=== PATIENT | male | born 1950 | race Caucasian/White ===

== ENCOUNTER 2016-07-07 14:49 | Outpatient (CLI) | payer BC, MEDICARE | END 2016-07-07 14:50 | disposition home or self-care (01) | DX: M17.11 Unilateral primary osteoarthritis, right knee (principal) ==

== ENCOUNTER 2016-11-16 15:54 | Outpatient (CLI) | payer BC, MEDICARE ==
--- NOTE | 2016-11-18 14:33 | CT Report ---
NONCONTRAST CHEST CT: 11/16/2016 CLINICAL HISTORY: A 66-year-old male with sarcoidosis. COMPARISON: None. TECHNIQUE: Noncontrast CT exam of the chest was done. In accordance with CT protocol optimization, one or more of the following dose reduction techniques were utilized for this exam: automated exposure control, adjustment of mA and/or KV based on patient size, or use of iterative reconstructive technique. FINDINGS: Mediastinum demonstrates small calcified granulomatous lymph node in the right posterior paratracheal region. There is also a small calcified lymph node immediately anterior to the right side of the distal third of the esophagus. Transvenous right atrial and right ventricular pacemaker wires are noted in place. Normal cardiac size is seen. Minor coronary artery calcification is detected. Lung windows demonstrate scarring in the lung apices especially posteriorly. There is also prominent scarring extending from each suprahilar region into the superior segment of each lower lobe. Prominent area of conglomerate scarring is also noted in the lateral aspect of the superior segment of the left lower lobe. These areas of scarring were present on a prior chest x-ray from 2014. They have a benign configuration. Several small granulomatous calcifications are seen in the right hilum. Upper abdomen shows no significant abnormality. A small hiatal hernia is seen extending into the inferior mediastinum. Bones show some mild anterior spurring. IMPRESSION: EVIDENCE OF OLD GRANULOMATOUS DISEASE WITH SOME SMALL CALCIFIED MEDIASTINAL AND RIGHT HILAR LYMPH NODES. MILD TO MODERATE SCARRING IS DETECTED IN EACH UPPER LOBE WITH MODERATE DEGREE OF SCARRING SEEN IN THE SUPERIOR SEGMENT OF EACH LOWER LOBE WITH FINDINGS MORE PRONOUNCED ON THE LEFT. THESE CHANGES ARE VERY SIMILAR TO THOSE NOTED ON A CHEST X-RAY FROM 07/20/2014. THEY MAY BE RESULT OF OLD GRANULOMATOUS DISEASE. SMALL HIATAL HERNIA. NORMAL CARDIAC SIZE WITH TRANSVENOUS RIGHT ATRIAL AND RIGHT VENTRICULAR PACEMAKER WIRES NOTED IN PLACE. JOB #: [id number] EXT JOB #: [id number] ANSHUL
== END 2016-11-16 15:55 | disposition home or self-care (01) ==
LOC: DI 15:54
PROVIDERS: ATTEND Internal Medicine Critical Care Medicine
DX: D86.9 Sarcoidosis, unspecified (principal); R91.8 Other nonspecific abnormal finding of lung field; K44.9 Diaphragmatic hernia without obstruction or gangrene; Z95.0 Presence of cardiac pacemaker
CPT/HCPCS: 71250

== ENCOUNTER 2016-11-17 07:41 | Outpatient (CLI) | payer BC, MEDICARE ==
[2016-11-17 08:44] LABS: ALBUMIN/GLOBULIN RATIO 1.6 (1.0-2.2); BILIRUBIN,TOTAL 0.9 mg/dL (0.2-1.0); CALCIUM 8.9 mg/dL (8.5-10.3); CREATININE 1.2 mg/dL (0.6-1.2); POTASSIUM 4.3 mmol/L (3.5-5.0); TOTAL PROTEIN 7.2 g/dL (6.7-8.2)
[2016-11-19 16:31] LABS: TEST RESULT REPORT (())
[2016-11-20 12:55] LABS: TEST RESULT REPORT (())
== END 2016-11-17 07:42 | disposition home or self-care (01) ==
LOC: LAB 07:41
PROVIDERS: ATTEND Internal Medicine Cardiovascular Disease
DX: R07.89 Other chest pain (principal); E78.00 Pure hypercholesterolemia, unspecified; I47.1 Supraventricular tachycardia
CPT/HCPCS: 80053; 80061; 81599; 82465; 82550; 83704; 83718; 84478; 86141

== ENCOUNTER 2017-09-06 08:00 | Outpatient (CLI) | payer MEDICARE, OTHER ==
[2017-09-06 18:45] LABS: BASOPHILS % (AUTO) 0.5 %; EOSINOPHILS # (AUTO) 0.1 10^3/uL (0.0-0.7); EOSINOPHILS % (AUTO) 2.3 %; HGB - HEMOGLOBIN 15.3 g/dL (14.0-18.0); LYMPHOCYTES # (AUTO) 1.7 10^3/uL (1.5-3.5); LYMPHOCYTES % (AUTO) 29.3 %; MEAN CORPUSCULAR HEMOGLOBIN 30.9 pg (27.0-31.0); MEAN CORPUSCULAR HGB CONC 33.3 g/dL (32.0-36.0); MEAN CORPUSCULAR VOLUME 92.7 fL (80.0-94.0); MEAN PLATELET VOLUME 8.5 fL (7.4-11.4); MONOCYTES # (AUTO) 0.6 10^3/uL (0.0-1.0); MONOCYTES % (AUTO) 10.6 %; NEUTROPHILS # (AUTO) 3.3 10^3/uL (1.5-6.6); NEUTROPHILS % (AUTO) 57.3 %; PLT - PLATELET COUNT 228 10^3/uL (130-450); RED BLOOD COUNT 4.96 10^6/uL (4.70-6.10); RED CELL DISTRIBUTION WIDTH 13.4 % (12.0-15.0); WHITE BLOOD COUNT 5.8 x10^3/uL (4.8-10.8)
[2017-09-06 19:24] LABS: ALBUMIN/GLOBULIN RATIO 1.3 (1.0-2.2); BILIRUBIN,TOTAL 0.8 mg/dL (0.2-1.0); CREATININE 1.2 mg/dL (0.6-1.2)
== END 2017-09-06 08:01 | disposition home or self-care (01) ==
LOC: LAB.WCP 08:00
PROVIDERS: ATTEND Family Medicine
DX: R41.3 Other amnesia (principal); Z12.5 Encounter for screening for malignant neoplasm of prostate
CPT/HCPCS: 36415; 80053; 85025; G0103; 84153

== ENCOUNTER 2017-10-14 09:26 | Outpatient (CLI) | payer MEDICARE, OTHER ==
[2017-10-14 18:16] LABS: ALBUMIN 4.2 g/dL (3.2-5.5); ALBUMIN/GLOBULIN RATIO 1.4 (1.0-2.2); BILIRUBIN,TOTAL 0.7 mg/dL (0.2-1.0); CALCIUM 8.8 mg/dL (8.5-10.3); CREATININE 1.2 mg/dL (0.6-1.2); CRP HIGH SENSITIVITY 0.7 mg/L; TOTAL PROTEIN 7.3 g/dL (6.7-8.2)
[2017-10-17 06:57] LABS: HDL LARGE 5577 nmol/L (4334-10815); LDL PARTICLE NUMBER 1561 nmol/L (1016-2185); LDL PATTERN A Pattern (A); LDL PEAK SIZE 224.8 Angstrom (> OR = 218.2); LDL SMALL 154 nmol/L (123-441)
== END 2017-10-14 09:27 | disposition home or self-care (01) ==
LOC: LAB.F 09:26
PROVIDERS: ATTEND Internal Medicine Cardiovascular Disease
DX: R07.89 Other chest pain (principal); E78.00 Pure hypercholesterolemia, unspecified
CPT/HCPCS: 36415; 80053; 81599; 82465; 82550; 83704; 83718; 84478; 86141

== ENCOUNTER 2017-10-18 13:11 | Day surgery (SDC) | payer MEDICARE, OTHER ==
[2017-10-18] MEDS ORDERED: LACTATED RINGERS 1,000 ML IV ONE (13:32)
[2017-10-18] MEDS ORDERED: fentaNYL 250 MCG/5 ML VIAL IVP ONE (15:14)
[2017-10-18] MEDS ORDERED: MIDAZOLAM 2 MG/2 ML VIAL IVP ONE (15:14)
[2017-10-18 15:43] VITALS: BP 103/68
== END 2017-10-18 13:12 | disposition home or self-care (01) ==
LOC: SDS 13:11
PROVIDERS: ATTEND Surgery
PROC: 0DJD8ZZ Inspection of Lower Intestinal Tract, Via Natural or Artificial Opening Endoscopic (ICD-10-PCS; principal; 2017-10-18 14:30)
DX: Z12.11 Encounter for screening for malignant neoplasm of colon (principal); Z80.0 Family history of malignant neoplasm of digestive organs; K64.8 Other hemorrhoids; Z87.891 Personal history of nicotine dependence
CPT/HCPCS: G0105; J3010; J7120

== ENCOUNTER 2017-10-29 19:31 | Outpatient (CLI) | payer MEDICARE, OTHER | END 2017-10-29 19:32 | disposition critical access hospital (66) | LOC: EMS 19:31 | PROVIDERS: ATTEND Surgery | DX: R10.30 Lower abdominal pain, unspecified (principal); R07.9 Chest pain, unspecified; V22.4XXA Motorcycle driver injured in collision with two- or three-wheeled motor vehicle in traffic accident, initial encounter; Y92.414 Local residential or business street as the place of occurrence of the external cause | CPT/HCPCS: A0425; A0429 ==

== ENCOUNTER 2017-10-29 20:13 | Emergency (ER) | payer OTHER, MEDICARE ==
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
[2017-10-29 20:57] LABS: BASOPHILS % (AUTO) 0.5 %; EOSINOPHILS # (AUTO) 0.1 10^3/uL (0.0-0.7); EOSINOPHILS % (AUTO) 0.7 %; HGB - HEMOGLOBIN 15.3 g/dL (14.0-18.0); LYMPHOCYTES # (AUTO) 1.2 10^3/uL (1.5-3.5); LYMPHOCYTES % (AUTO) 11.7 %; MEAN CORPUSCULAR HEMOGLOBIN 31.2 pg (27.0-31.0); MEAN CORPUSCULAR VOLUME 91.8 fL (80.0-94.0); MEAN PLATELET VOLUME 7.6 fL (7.4-11.4); MONOCYTES # (AUTO) 0.8 10^3/uL (0.0-1.0); MONOCYTES % (AUTO) 7.8 %; NEUTROPHILS % (AUTO) 79.3 %; PLT - PLATELET COUNT 222 10^3/uL (130-450); RED BLOOD COUNT 4.91 10^6/uL (4.70-6.10); RED CELL DISTRIBUTION WIDTH 13.4 % (12.0-15.0); WHITE BLOOD COUNT 10.1 x10^3/uL (4.8-10.8)
[2017-10-29] MEDS ORDERED: IOPAMIDOL-300 100 ML VIAL ONE (21:05)
[2017-10-29 21:10] LABS: ALBUMIN 4.5 g/dL (3.2-5.5); ALBUMIN/GLOBULIN RATIO 1.3 (1.0-2.2); BILIRUBIN,TOTAL 1.1 mg/dL (0.2-1.0); CALCIUM 8.8 mg/dL (8.5-10.3); CREATININE 1.2 mg/dL (0.6-1.2); TOTAL PROTEIN 7.9 g/dL (6.7-8.2)
[2017-10-29] MEDS ORDERED: IOPAMIDOL-300 100 ML VIAL IVP ONE (21:17)
--- NOTE | 2017-10-29 21:46 | CT Report ---
EXAM: CT HEAD EXAM DATE: 10/29/2017 09:23 PM. CLINICAL HISTORY: Trauma, amnesia. COMPARISON: 08/16/2012. TECHNIQUE: Multiaxial CT images were obtained from the foramen magnum to the vertex. Reformats: Coron al. IV contrast: None. In accordance with CT protocol optimization, one or more of the following dose reduction techniques w ere utilized for this exam: automated exposure control, adjustment of mA and/or KV based on patient s ize, or use of iterative reconstructive technique. FINDINGS: Parenchyma: No intraparenchymal hemorrhage. No evidence of mass, midline shift, or CT findings of inf arction. Mock-white differentiation is distinct. Extraaxial Spaces: Normal for age. No subdural or epidural collections. Ventricles: Normal in size and position. Sinuses and Orbits: Imaged paranasal sinuses, orbits, and mastoids show no significant abnormality. Bones: Unremarkable. Other: None. IMPRESSION: Normal head CT. [facility] Referring Provider Line: [phone] SITE ID: [id number]
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
--- NOTE | 2017-10-29 22:05 | CT Preliminary Report ---
Exam: CT CHEST W/ IMPRESSION: 1. Persistent stable areas of scarring in both upper lobes and left lower lobe. No acute pulmonary ab normality such as pneumothorax or effusion. 2. No mediastinal hematoma. Stable cardiac size and cardiac pacemaker. [facility] SITE ID: [id number]
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
--- NOTE | 2017-10-29 22:14 | CT Preliminary Report ---
Exam: CT ABDOMEN/PELVIS W/ IMPRESSION: No acute injury in the abdomen or pelvis. [facility] SITE ID: [id number]
[2017-10-29 22:34] VITALS: BP 128/76
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
== END 2017-10-29 23:22 | disposition home or self-care (01) ==
LOC: EDUNIT# → ED 20:13
DX: S80.811A Abrasion, right lower leg, initial encounter (principal); S80.812A Abrasion, left lower leg, initial encounter; M25.461 Effusion, right knee; S29.9XXA Unspecified injury of thorax, initial encounter; S30.1XXA Contusion of abdominal wall, initial encounter; S80.01XA Contusion of right knee, initial encounter; V22.4XXA Motorcycle driver injured in collision with two- or three-wheeled motor vehicle in traffic accident, initial encounter; Y93.I9 Activity, other involving external motion
CPT/HCPCS: 36415; 70450; 71260; 72125; 73564; 74177; 80053; 83690; 85025; 99283; 99284; Q9967

== ENCOUNTER 2018-11-25 08:01 | Outpatient (CLI) | payer MEDICARE, OTHER | END 2018-11-25 08:02 | disposition home or self-care (01) | LOC: LAB.F 08:01 | PROVIDERS: ATTEND Registered Nurse | DX: Z53.9 Procedure and treatment not carried out, unspecified reason (principal) ==

== ENCOUNTER 2018-11-29 08:20 | Outpatient (CLI) | payer MEDICARE, OTHER ==
[2018-11-29 10:24] LABS: BASOPHILS # (AUTO) 0.1 10^3/uL (0.0-0.1); EOSINOPHILS # (AUTO) 0.2 10^3/uL (0.0-0.7); EOSINOPHILS % (AUTO) 3.6 %; HGB - HEMOGLOBIN 15.8 g/dL (14.0-18.0); LYMPHOCYTES # (AUTO) 1.5 10^3/uL (1.5-3.5); LYMPHOCYTES % (AUTO) 30.9 %; MEAN CORPUSCULAR HEMOGLOBIN 30.8 pg (27.0-31.0); MEAN CORPUSCULAR HGB CONC 33.8 g/dL (32.0-36.0); MEAN CORPUSCULAR VOLUME 91.2 fL (80.0-94.0); MEAN PLATELET VOLUME 8.4 fL (7.4-11.4); MONOCYTES # (AUTO) 0.5 10^3/uL (0.0-1.0); MONOCYTES % (AUTO) 10.7 %; NEUTROPHILS # (AUTO) 2.7 10^3/uL (1.5-6.6); NEUTROPHILS % (AUTO) 53.8 %; PLT - PLATELET COUNT 215 10^3/uL (130-450); RED BLOOD COUNT 5.12 10^6/uL (4.70-6.10); RED CELL DISTRIBUTION WIDTH 14.1 % (12.0-15.0)
[2018-11-29 10:40] LABS: ALBUMIN 4.1 g/dL (3.2-5.5); ALBUMIN/GLOBULIN RATIO 1.2 (1.0-2.2); ALKALINE PHOSPHATASE 58 IU/L (42-121); ALT ALANINE AMINOTRANSFERASE 31 IU/L (10-60); AST ASPARTATE AMINOTRANSFERASE 26 IU/L (10-42); BILIRUBIN,TOTAL 0.9 mg/dL (0.2-1.0); BUN - BLOOD UREA NITROGEN 23 mg/dL (6-20); CALCIUM 8.8 mg/dL (8.5-10.3); CARBON DIOXIDE - CO2 27 mmol/L (21-32); CHLORIDE 102 mmol/L (101-111); CHOLESTEROL 237 mg/dL; CREATININE 1.4 mg/dL (0.6-1.2); GFR - MDRD 51 (>89); GLUCOSE 96 mg/dL (70-100); HDL CHOLESTEROL 59 mg/dL; LDL CHOLESTEROL,CALCULATED 166 mg/dL; LDL/HDL RATIO 2.8 (<3.6); SODIUM 137 mmol/L (135-145); TOTAL PROTEIN 7.4 g/dL (6.7-8.2); VLDL CHOLESTEROL 12 mg/dL
[2018-11-29 10:47] LABS: HB2 TOTAL 16.9 g/dL; HEMOGLOBIN A1C 0.7 g/dL; HEMOGLOBIN A1C % 5.9 % (4.6-6.2)
== END 2018-11-29 08:21 | disposition home or self-care (01) ==
LOC: LAB.F 08:20
PROVIDERS: ATTEND Registered Nurse
DX: N52.9 Male erectile dysfunction, unspecified (principal); F41.8 Other specified anxiety disorders; R42 Dizziness and giddiness; Z95.0 Presence of cardiac pacemaker
CPT/HCPCS: 36415; 80053; 80061; 83036; 83721; 84443; 85025

== ENCOUNTER 2020-03-15 15:25 | Outpatient (CLI) | payer MEDICARE, OTHER | END 2020-03-15 15:26 | disposition home or self-care (01) | LOC: COV 15:25 | PROVIDERS: ATTEND Family Medicine | DX: R05 Cough (principal); R53.83 Other fatigue; R68.83 Chills (without fever); J02.9 Acute pharyngitis, unspecified; Z20.828 Contact with and (suspected) exposure to other viral communicable diseases ==

== ENCOUNTER 2020-07-06 10:16 | Emergency (ER) | payer MEDICARE, OTHER ==
[2020-07-06 11:05] LABS: BASOPHILS % (AUTO) 0.7 %; EOSINOPHILS # (AUTO) 0.1 10^3/uL (0.0-0.7); EOSINOPHILS % (AUTO) 2.2 %; HGB - HEMOGLOBIN 15.8 g/dL (14.0-18.0); LYMPHOCYTES # (AUTO) 1.8 10^3/uL (1.5-3.5); LYMPHOCYTES % (AUTO) 30.7 %; MEAN CORPUSCULAR HEMOGLOBIN 32.5 pg (27.0-31.0); MEAN CORPUSCULAR HGB CONC 34.9 g/dL (32.0-36.0); MEAN CORPUSCULAR VOLUME 93.2 fL (80.0-94.0); MEAN PLATELET VOLUME 9.7 fL (7.4-11.4); MONOCYTES # (AUTO) 0.7 10^3/uL (0.0-1.0); MONOCYTES % (AUTO) 12.2 %; NEUTROPHILS # (AUTO) 3.2 10^3/uL (1.5-6.6); PLT - PLATELET COUNT 219 10^3/uL (130-450); RED BLOOD COUNT 4.86 10^6/uL (4.70-6.10); RED CELL DISTRIBUTION WIDTH 13.2 % (12.0-15.0)
[2020-07-06 11:19] LABS: ALBUMIN 4.1 g/dL (3.2-5.5); ALBUMIN/GLOBULIN RATIO 1.3 (1.0-2.2); BILIRUBIN,TOTAL 0.8 mg/dL (0.2-1.0); CALCIUM 8.7 mg/dL (8.5-10.3); CREATININE 1.1 mg/dL (0.6-1.2); TOTAL PROTEIN 7.3 g/dL (6.7-8.2)
--- NOTE | 2020-07-06 11:22 | XRAY Report ---
PROCEDURE: Chest 1 View X-Ray INDICATIONS: Chest pain TECHNIQUE: One view of the chest was acquired. COMPARISON: CT chest 10/29/2017. CXR 02/03/2017. FINDINGS: Surgical changes and devices: Left pacemaker with right atrial and right ventricular leads. Lungs and pleura: No pleural effusions or pneumothorax. Lungs are clear. Mediastinum: Mediastinal contours appear normal. Heart size is normal. Bones and chest wall: No suspicious bony lesions. Overlying soft tissues appear unremarkable. IMPRESSION: No acute cardiopulmonary abnormality. Reviewed by: Marcelino Bourdeaux MD on 07/06/2020 10:20 AM [facility] Approved by: Marcelino Boudreaux MD on 07/06/2020 10:20 AM [facility] Station ID: [id number]
[2020-07-06] MEDS ORDERED: SODIUM CHLORIDE 0.9% 1,000 ML IV STA (11:46)
--- NOTE | 2020-07-06 11:49 | ED Physician Documentation ---
PD HPI CHEST PAIN - Stated complaint Stated Complaint: CHEST PX,LIGHT HEADED - Chief complaint Chief Complaint: Cardiac - History obtained from History obtained from: Patient - History of Present Illness Timing - onset: Enter time (0600), Today Timing - onset during: Rest Timing - duration: Hours Timing - details: Abrupt onset, Still present Quality: Pressure Location: Substernal Radiation: No: Jaw, Neck, Back, Abdominal, Left upper extremity, Right upper extremity Improved by: Nothing Worsened by: Other (nothing) Associated symptoms: Shortness of air, Feeling faint / dizzy. No: Diaphoresis, Nausea, Vomiting, General Weakness, Palpitations, Cough Similar symptoms before: Has not had sx before Recently seen: Not recently seen - Additional information Additional information: Previously well 70-year-old male who has a pacemaker in place since 2012 awoke this morning with pain in the substernal area as a pressure in his chest. He states that he did not have radiation of the pain he did not have diaphoresis or nausea associated with it but when he got up to go make his breakfast he did feel little bit lightheaded and dizzy. He has come to the emergency department now for evaluation. He states he is not feeling particularly ill. He has had some ibuprofen the last 2 nights in a row because of a low-grade headache. Review of Systems Constitutional: denies: Fever Eyes: denies: Decreased vision Ears: denies: Ear pain Nose: denies: Rhinorrhea / runny nose, Congestion Throat: denies: Sore throat Cardiac: reports: Chest pain / pressure. denies: Palpitations, Pedal edema, Calf pain Respiratory: reports: Dyspnea. denies: Cough, Wheezing GI: denies: Abdominal Pain, Nausea, Vomiting : denies: Dysuria, Frequency PD PAST MEDICAL HISTORY - Past Medical History Cardiovascular: Angina, Other Respiratory: None Endocrine/Autoimmune: None GI: GERD : Other HEENT: None Psych: Depression, Anxiety Musculoskeletal: None Derm: None - Past Surgical History Past Surgical History: Yes General: Other Cardiovascular: Pacemaker - Present Medications Home Medications: Ambulatory Orders Medication Instructions Recorded Confirmed No Known Home Medications 10/18/17 07/06/20 - Allergies Allergies/Adverse Reactions: Allergies Allergy/AdvReac Type Severity Reaction Status Date / Time No Known Drug Allergies Allergy Verified 07/06/20 10:45 - Social History Does the pt smoke?: No Smoking Status: Never smoker Does the pt drink ETOH?: Yes Does the pt have substance abuse?: No - Immunizations Immunizations are current?: Yes - POLST Patient has POLST: No PD ED PE NORMAL - Vitals Vital signs reviewed: Yes (Hypertensive mild) - General General: Alert and oriented X 3, No acute distress, Well developed/nourished - HEENT HEENT: Atraumatic, PERRL, EOMI - Neck Neck: Supple, no meningeal sign, No bony TTP - Cardiac Cardiac: RRR, Other (1/6 holosystolic murmer at LSB) - Respiratory Respiratory: No respiratory distress, Clear bilaterally, Other (no chest wall tenderness) - Abdomen Abdomen: Soft, Non tender - Back Back: No CVA TTP, No spinal TTP - Derm Derm: Normal color, Warm and dry, No rash - Extremities Extremities: No deformity, No edema - Neuro Neuro: Alert and oriented X 3, senior research executive 2-12 intact, No motor deficit, No sensory deficit, Normal speech Eye Opening: Spontaneous Motor: Obeys Commands Verbal: Oriented GCS Score: 15 - Psych Psych: Normal mood, Normal affect Results - Vitals Vitals: Vital Signs - 24 hr 07/06/20 10:44 Temperature 36.1 C L Heart Rate 70 Respiratory 18 Rate Blood Pressure 144/92 H O2 Saturation 98 Oxygen O2 Source Room air - EKG (time done) 1025 Rate: Rate (enter#) (70) Rhythm: Paced Compare to prior EKG: Unchanged from prior EKG (SPT 02-13-2014 no changes) Computer interpretation: Agree with computer - Labs Labs: Laboratory Tests 07/06/20 07/06/20 07/06/20 10:32 10:32 10:32 WBC 6.0 RBC 4.86 Hgb 15.8 Hct 45.3 MCV 93.2 MCH 32.5 H MCHC 34.9 RDW 13.2 Plt Count 219 MPV 9.7 Neut # (Auto) 3.2 Lymph # (Auto) 1.8 Mchenry # (Auto) 0.7 Eos # (Auto) 0.1 Baso # (Auto) 0.0 Absolute Nucleated RBC 0.00 Nucleated RBC % 0.0 Sodium 138 Potassium 4.1 Chloride 99 L Carbon Dioxide 27 Anion Gap 12.0 BUN 30 H Creatinine 1.1 Estimated GFR (MDRD) 66 L Glucose 93 Calcium 8.7 Total Bilirubin 0.8 AST 25 ALT 29 Alkaline Phosphatase 62 Troponin I High Sens < 2.3 L Total Protein 7.3 Albumin 4.1 Globulin 3.2 Albumin/Globulin Ratio 1.3 Lipase 29 - Rads (name of study) chest Radiology: Prelim report reviewed (Impression: No acute cardiopulmonary abnormality.), EMP read indepedently, See rad report Procedures - IVC sono (time) 1138 Bedside IVC sono: IVC measures (cm) (0.88), IVC collapsed c insp (cm) (complete), Dehydration (est 2 liter deficit .) PD MEDICAL DECISION MAKING - ED course Complexity details: reviewed old records, reviewed results, re-evaluated patient, considered differential, d/w patient ED course: 70-year-old male with anterior chest pain without radiation has a negative troponin 5 hours after onset of symptoms and his electrocardiogram is nonischemic appearing. A paced rhythm. He is found to be dehydrated on interrogation of the inferior vena cava, his BUN is elevated consistent with dehydration, I suspect the headache he has had was also likely related. We found no evidence to link his chest pain directly to his heart and he is administered a liter of saline. Departure - Departure Disposition: 01 Home, Self Care Clinical Impression: Atypical chest pain, Dehydration Condition: Stable Instructions: ED Dehydration, ED Chest Pain Atypical Unkn Cause Follow-Up: Catracho Miranda MD [Primary Care Provider] -
[2020-07-06 12:27] VITALS: BP 133/94
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
== END 2020-07-06 12:26 | disposition home or self-care (01) ==
LOC: ED 10:16
DX: R07.89 Other chest pain (principal); E86.0 Dehydration; Z95.0 Presence of cardiac pacemaker
CPT/HCPCS: 36415; 80053; 83690; 84484; 85025; 93005; 99284

== ENCOUNTER 2021-04-17 15:39 | Outpatient (CLI) | payer MEDICARE ==
--- NOTE | 2021-04-17 16:46 | Ultrasound Report ---
PROCEDURE: Bladder INDICATIONS: URINARY URGENCY TECHNIQUE: Grayscale and color Doppler ultrasound images of the bladder was performed. COMPARISON: None. FINDINGS: Prevoid bladder volume is 367 cc. Postvoid bladder volume is 230 cc's. The prostate is enlarged measu ring 5.1 x 4.5 x 4.4 cm, with an estimated volume of 54 cc. There is thickening and trabeculation of the urinary bladder wall measuring up to 6.2 mm in thickness. IMPRESSION: 1. Elevated post void residual consistent with urinary outlet obstruction. 2. Enlarged prostate with an estimated volume of 54 cc. Reviewed by: Forrest Manrique on 04/17/2021 4:44 PM PDT Approved by: Forrest Manrique on 04/17/2021 4:44 PM PDT Station ID: [id number]
== END 2021-04-17 15:40 | disposition home or self-care (01) ==
LOC: DI 15:39
PROVIDERS: ATTEND Internal Medicine
DX: R39.15 Urgency of urination (principal); N40.1 Benign prostatic hyperplasia with lower urinary tract symptoms; R93.41 Abnormal radiologic findings on diagnostic imaging of renal pelvis, ureter, or bladder

== ENCOUNTER 2021-06-16 11:19 | Outpatient (CLI) | payer MEDICARE ==
--- NOTE | 2021-06-16 13:29 | XRAY Report ---
PROCEDURE: Knee 3 View RT INDICATIONS: PREPATELLAR BURSITIS RT KN,BI OSTEOARTHRITIS HAND TECHNIQUE: 3 views of the right knee(s) were acquired. COMPARISON: None. FINDINGS: Bones: No fractures or dislocations. Mild tricompartmental osteoarthritis is seen more prominent in medial femoral tibial compartment. No suspicious bony lesions. Soft tissues: No joint effusion. No suspicious soft tissue calcifications. Mild prepatellar soft t issue swelling is seen. IMPRESSION: Mild tricompartment osteoarthritis more prominent in medial femoral tibial compartment. No fracture or dislocation. No significant joint effusion. Mild prepatellar soft tissue swelling, whi ch may represent prepatellar bursitis. Reviewed by: Seth Manley MD on 06/16/2021 1:27 PM PST Approved by: Seth Manley MD on 06/16/2021 1:27 PM PST Station ID: [id number]
--- NOTE | 2021-06-16 15:07 | XRAY Report ---
PROCEDURE: Hand 3 View BILAT INDICATIONS: PREPATELLAR BURSITIS RT KN, BI OSTEOARTHRITIS HAND TECHNIQUE: 3 views of the bilateral hand(s) acquired. COMPARISON: None FINDINGS: Bones: No fractures or dislocations. No suspicious bony lesions. On the right, there is advanced degenerative arthritis of the first carpometacarpal joint with severe joint space loss, large osteophytes, and radial subluxation of the first metacarpal. Nonspecific sub chondral cystic changes are noted in the distal radius and scaphoid. On the left, there is severe degenerative arthritis of the first carpometacarpal joint and advanced t riscaphe joint space loss and sclerosis. Soft tissues: No suspicious soft tissue calcifications. IMPRESSION: 1. No evidence of acute bony abnormality of the hands. 2. 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 3. On the right, there is severe first carpometacarpal degenerative change and advanced triscaphe xiomara nt degenerative change. Reviewed by: Tanner Michel MD on 06/16/2021 3:06 PM PST Approved by: Tanner Michel MD on 06/16/2021 3:06 PM PST Station ID: [id number]
== END 2021-06-16 11:20 | disposition home or self-care (01) ==
LOC: DI.S 11:19
PROVIDERS: ATTEND Nurse Practitioner Family
DX: M18.0 Bilateral primary osteoarthritis of first carpometacarpal joints (principal); M19.031 Primary osteoarthritis, right wrist; M17.11 Unilateral primary osteoarthritis, right knee; M70.41 Prepatellar bursitis, right knee

== ENCOUNTER 2022-11-09 10:23 | Outpatient (CLI) | payer MEDICARE | END 2022-11-09 10:24 | disposition critical access hospital (66) | LOC: EMS 10:23 | DX: R07.89 Other chest pain (principal); R11.2 Nausea with vomiting, unspecified | CPT/HCPCS: A0425; A0429 ==

== ENCOUNTER 2022-11-09 10:49 | Emergency (ER) | payer MEDICARE ==
[2022-11-09 11:10] LABS: BASOPHILS % (AUTO) 0.5 %; EOSINOPHILS # (AUTO) 0.2 10^3/uL (0.0-0.7); EOSINOPHILS % (AUTO) 2.8 %; HGB - HEMOGLOBIN 14.8 g/dL (14.0-18.0); LYMPHOCYTES # (AUTO) 1.7 10^3/uL (1.5-3.5); LYMPHOCYTES % (AUTO) 27.2 %; MEAN CORPUSCULAR HEMOGLOBIN 31.8 pg (27.0-31.0); MEAN CORPUSCULAR HGB CONC 34.4 g/dL (32.0-36.0); MEAN CORPUSCULAR VOLUME 92.5 fL (80.0-94.0); MEAN PLATELET VOLUME 9.5 fL (7.4-11.4); MONOCYTES # (AUTO) 0.8 10^3/uL (0.0-1.0); MONOCYTES % (AUTO) 11.8 %; NEUTROPHILS # (AUTO) 3.7 10^3/uL (1.5-6.6); NEUTROPHILS % (AUTO) 57.4 %; PLT - PLATELET COUNT 205 10^3/uL (130-450); RED BLOOD COUNT 4.65 10^6/uL (4.70-6.10); RED CELL DISTRIBUTION WIDTH 13.2 % (12.0-15.0); WHITE BLOOD COUNT 6.4 x10^3/uL (4.8-10.8)
[2022-11-09 11:24] LABS: ALBUMIN 3.7 g/dL (3.2-5.5); ALBUMIN/GLOBULIN RATIO 1.1 (1.0-2.2); BILIRUBIN,TOTAL 0.7 mg/dL (0.2-1.0); CALCIUM 8.5 mg/dL (8.5-10.3); CREATININE 1.1 mg/dL (0.6-1.2)
--- NOTE | 2022-11-09 11:29 | XRAY Report ---
PROCEDURE: Chest 1 View X-Ray INDICATIONS: CP TECHNIQUE: One view of the chest was acquired. COMPARISON: 07/06/2020 FINDINGS: Surgical changes and devices: Partially seen left chest wall pulse generator and dual chamber electr odes leads. Lungs and pleura: Mild right infrahilar opacities, slightly more prominent than prior. No dense cons olidation elsewhere or pleural effusions. Mediastinum: Mediastinal contours appear normal. Heart size is normal. Bones and chest wall: No suspicious bony lesions. Overlying soft tissues appear unremarkable. IMPRESSION: Mild right infrahilar opacities could represent atelectasis/scarring versus early airspace disease. C onsider future imaging surveillance to assess for resolution. Reviewed by: Warren Carrillo MD on 11/09/2022 11:28 AM PDT Approved by: Warren Carrillo MD on 11/09/2022 11:28 AM PDT Station ID: [id number]
--- NOTE | 2022-11-09 11:34 | ED Physician Documentation ---
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 Patient states that he has regularly been having episodes of chest pain with exertion for the last 3 months. Patient reports having an episode of chest pain while mowing the lawn this morning at 930 that lasted approximately 30 minutes.He had associated nausea, lightheadedness and threw up once. The pain did not radiate elsewhere. It felt like a heaviness in the middle of his chest. It is similar to other episodes of chest pain that he has had Denies that they are worsening or lasting longer.He denies shortness of breath. His insulation blower is Dr. Gandara at [facility]. He also saw his primary care provider 1 month ago for this and an EKG was done in the office. He was told to follow-up with his insulation blower.He reports seeing Dr. Gandara recently And discussing these episodes of chest pain but is unsure what the next step was going to be. He called to their office again on Wednesday but only spoke to the ancillary staff and was told that if it happened again he should call an ambulance so an EKG be done Review of Systems Constitutional: denies: Fever Cardiac: reports: Chest pain / pressure Respiratory: denies: Dyspnea GI: reports: Vomiting (x1). denies: Abdominal Pain : denies: Dysuria Musculoskeletal: denies: Back pain, Extremity swelling Neurologic: denies: Headache PD PAST MEDICAL HISTORY - Past Medical History Cardiovascular: Angina, Other Respiratory: None Endocrine/Autoimmune: None GI: GERD : Other HEENT: None Psych: Depression, Anxiety Musculoskeletal: None Derm: None - Past Surgical History Past Surgical History: Yes General: Other Cardiovascular: Pacemaker - Present Medications Home Medications: Ambulatory Orders Medication Instructions Recorded Confirmed No Known Home Medications 10/18/17 11/09/22 - Allergies Allergies/Adverse Reactions: Allergies Allergy/AdvReac Type Severity Reaction Status Date / Time No Known Drug Allergies Allergy Verified 07/06/20 10:45 - Social History Does the pt smoke?: No Smoking Status: Never smoker Does the pt drink ETOH?: Yes Does the pt have substance abuse?: No - Immunizations Immunizations are current?: Yes - POLST Patient has POLST: No PD ED PE NORMAL - General General: Alert and oriented X 3, No acute distress, Well developed/nourished - HEENT HEENT: Atraumatic - Neck Neck: Supple, no meningeal sign - Cardiac Cardiac: RRR, No murmur, Strong equal pulses - Respiratory Respiratory: No respiratory distress, Clear bilaterally - Abdomen Abdomen: Soft, Non tender - Derm Derm: Warm and dry - Extremities Extremities: No edema, No calf tenderness / cord - Neuro Neuro: Normal speech Results - Vitals Vitals: Vital Signs - 24 hr 11/09/22 11/09/22 11/09/22 10:53 11:10 12:22 Temperature 36.6 C Heart Rate 70 70 70 Respiratory 18 18 18 Rate Blood Pressure 133/87 H 126/76 124/86 H O2 Saturation 96 97 94 11/09/22 11/09/22 11/09/22 12:43 13:54 14:26 Temperature Heart Rate 70 70 70 Respiratory 18 18 18 Rate Blood Pressure 128/93 H 132/92 H 125/90 H O2 Saturation 95 94 95 11/09/22 14:33 Temperature Heart Rate 70 Respiratory 18 Rate Blood Pressure 125/90 H O2 Saturation 95 Oxygen O2 Source Room air - EKG (time done) 1049 EKG releavant findings:: EKG personally interpreted by author of this note. Relevant findings are: Rate 70, paced rhythm, no STEMI, QTc 417 Rate: Rate (enter#) (70) Rhythm: Paced Intervals: No: Prolonged QT Ischemia: No: ST elevation c/w ischemia Compare to prior EKG: Unchanged from prior EKG (07/06/20) - Labs Labs: Laboratory Tests 11/09/22 11/09/22 11/09/22 11:02 11:02 11:02 WBC 6.4 RBC 4.65 L Hgb 14.8 Hct 43.0 MCV 92.5 MCH 31.8 H MCHC 34.4 RDW 13.2 Plt Count 205 MPV 9.5 Neut # (Auto) 3.7 Lymph # (Auto) 1.7 [place] # (Auto) 0.8 Eos # (Auto) 0.2 Baso # (Auto) 0.0 Absolute Nucleated RBC 0.00 Nucleated RBC % 0.0 Sodium 137 Potassium 4.0 Chloride 102 Carbon Dioxide 26 Anion Gap 9.0 BUN 21 H Creatinine 1.1 Estimated GFR (MDRD) 66 L Glucose 95 Calcium 8.5 Total Bilirubin 0.7 AST 26 ALT 28 Alkaline Phosphatase 58 Troponin I High Sens 3.0 Total Protein 7.0 Albumin 3.7 Globulin 3.3 Albumin/Globulin Ratio 1.1 Lipase 47 11/09/22 13:55 WBC RBC Hgb Hct MCV MCH MCHC RDW Plt Count MPV Neut # (Auto) Lymph # (Auto) [place] # (Auto) Eos # (Auto) Baso # (Auto) Absolute Nucleated RBC Nucleated RBC % Sodium Potassium Chloride Carbon Dioxide Anion Gap BUN Creatinine Estimated GFR (MDRD) Glucose Calcium Total Bilirubin AST ALT Alkaline Phosphatase Troponin I High Sens 7.5 Total Protein Albumin Globulin Albumin/Globulin Ratio Lipase PD Medical Decision Making - ED course Complexity details: reviewed results, re-evaluated patient, d/w patient, d/w family ED course: Patient is a 72-year-old presenting for evaluation of chest pain with intermittent episodes for the past several months. He denies that the episodes are becoming more frequent or more intense to suggest unstable angina.His EKG is reassuring without signs of acute ischemia. His high-sensitivity troponin is negative x2. He has been symptom-free since being in the emergency department making pulmonary embolism or dissection less likely. He is ambulated to the bathroom here without any recurrence of pain. We were able to get outpatient records from his cardiology appointment in early August. At that time Dr. Gandara is Recommending that the patient have a pharmacologic nuclear stress test. Patient states he has not heard from their office to schedule this and has not reached out to try and also schedule this.We do not have capabilities to do a nuclear stress test here. Patient does not want to be admitted Or transferred at this time. He is planning on reaching out to his insulation blower office this afternoon to schedule the stress test that was recommended in early August. He is advised on strict return precautions for recurrence of his pain or any changes. 1330 - We have attempted to reach Dr. Gandara or one of his colleagues.D/W Cardiology who Is on-call at [facility] for another group and covers for the group that Dr. Gandara is part of. She has looked through the patient's chart and has seen that the patient had a stress test and echo with normal ejection fraction in December 2021. He has declined statins in the past. On her review of the chart she has seen that patient has had chronic chest pain without clear etiology in the past and does not feel the patient needs emergent transfer at this time. Departure - Departure Disposition: 01 Home, Self Care Clinical Impression: Chest pain Condition: Good Instructions: ED Chest Pain Atypical Unkn Cause Follow-Up: SKYLER GANDARA MD [Physician No Access] - Comments: You need close follow-up with your insulation blower. At this time the exact cause for your chest pain is unclear but based upon his records from 2 months ago he was recommending a stress test which may offer further information. Please call his office today to help arrange for close follow-up and the stress test. If you develop any worsening symptoms such as your pain returning, moving somewhere else, becoming more intense or you have any new concerns or symptoms please return to the emergency department. Discharge Date/Time: 11/09/22 15:08
[2022-11-09 14:28] VITALS: BP 125/90
== END 2022-11-09 15:08 | disposition home or self-care (01) ==
LOC: EDUNIT# → ED 10:49
DX: R07.9 Chest pain, unspecified (principal)
CPT/HCPCS: 36415; 80053; 83690; 84484; 85025; 93005; 99283; 99284

== ENCOUNTER 2023-09-15 08:34 | Outpatient (CLI) | payer MEDICARE ==
[2023-09-15 15:55] LABS: CRP HIGH SENSITIVITY 0.98 mg/L
[2023-09-15 15:57] LABS: ALBUMIN 4.1 g/dL (3.2-5.5); ALBUMIN/GLOBULIN RATIO 1.6 (1.0-2.2); BILIRUBIN,TOTAL 0.6 mg/dL (0.2-1.0); CALCIUM 9.1 mg/dL (8.5-10.3); CREATININE 1.1 mg/dL (0.6-1.3); POTASSIUM 4.6 mmol/L (3.5-4.5); TOTAL PROTEIN 6.7 g/dL (6.4-8.9)
== END 2023-09-15 08:35 | disposition home or self-care (01) ==
LOC: LAB.S 08:34
PROVIDERS: ATTEND Internal Medicine Clinical Cardiac Electrophysiology
DX: I25.10 Atherosclerotic heart disease of native coronary artery without angina pectoris (principal); E78.5 Hyperlipidemia, unspecified
CPT/HCPCS: 36415; 80053; 82172; 86141

== ENCOUNTER 2023-09-21 10:02 | Outpatient (CLI) | payer MEDICARE ==
[2023-09-21 15:36] LABS: CHOL/HDL RATIO 2.7 (<5.0); CHOLESTEROL 162 mg/dL; HDL CHOLESTEROL 60 mg/dL; LDL CHOLESTEROL,CALCULATED 86 mg/dL; LDL/HDL RATIO 1.4 (<3.6); TRIGLYCERIDES 82 mg/dL (48-352); VLDL CHOLESTEROL 16 mg/dL
== END 2023-09-21 10:03 | disposition home or self-care (01) ==
LOC: LAB.S 10:02
PROVIDERS: ATTEND Internal Medicine Clinical Cardiac Electrophysiology
DX: E78.5 Hyperlipidemia, unspecified (principal)
CPT/HCPCS: 36415; 80061; 83721